=== PATIENT | male | born 1980 | race African-American/Black ===

== ENCOUNTER → 2022-03-29 11:05 | Outpatient (BNVA) | payer BC, SELFPAY | PROVIDERS: PCP Internal Medicine; Referring Provider Internal Medicine; Visit Provider Surgery | DX: D17.20 Benign lipomatous neoplasm of skin and subcutaneous tissue of unspecified limb (principal) ==

== ENCOUNTER 2023-02-13 10:46 | Outpatient (REF) | payer BC, SELFPAY ==
[2023-02-13 14:25] LABS: MANUAL DIFF FLAG NO
[2023-02-13 14:26] LABS: Basophils Percent Auto 0.3 % (0-2); Eosinophils Absolute Auto 0.1 X10*3/uL (0.0-0.4); Eosinophils Percent Auto 1.7 % (0-4); Hematocrit 43.5 % (42.0-52.0); Hemoglobin 14.5 g/dl (14.0-18.0); Imm Gran Abs Auto 0.02 X10*3/uL (0.00-0.03); Imm Gran Pct Auto 0.3 % (0.0-0.4); Lymphocytes Absolute Auto 2.2 X10*3/uL (1.2-4.9); Lymphocytes Percent Auto 37.4 % (20-40); Mean Corpuscular HGB Conc 33.3 g/dl (31.0-36.0); Mean Corpuscular Hemoglobin 29.4 pg (27.0-33.0); Mean Corpuscular Volume 88.1 fL (80.0-98.0); Mean Platelet Volume 10.5 fL (9.4-12.4); Monocytes Absolute Auto 0.4 X10*3/uL (0.1-1.2); Monocytes Percent Auto 6.6 % (2-11); Neutrophils Absolute Auto 3.2 x10*3/uL (2.0-8.3); Neutrophils Percent Auto 53.7 % (45-73); Platelet Count 210 X10*3/uL (160-400); Red Blood Count 4.94 X10*6/uL (4.60-5.80); Red Cell Distribution Width 13.1 % (11.0-16.0); White Blood Count 5.9 X10*3/uL (4.8-10.8)
[2023-02-13 14:53] LABS: Alanine Aminotransferase 29 U/L (0-40); Albumin Level 4.4 g/dL (3.5-5.0); Alkaline Phosphatase 67 U/L (39-117); Anion Gap 14 (12-20); Aspartate Amino Transferase 28 U/L (5-37); Blood Urea Nitrogen 12 mg/dL (9-16); Calcium 9.6 mg/dL (8.4-10.2); Carbon Dioxide 25 mmol/L (22-29); Chloride 105 mmol/L (96-108); Cholesterol 166 mg/dL; Estimated Glomerular Filt Rate > 60; Glucose Fasting 124 mg/dL (60-99); HDL Cholesterol 46 mg/dL; LDL Cholesterol Calculated 110 mg/dl; Potassium 4.5 mmol/L (3.3-5.1); Sodium 139 mmol/L (135-145); Triglycerides 52 mg/dL
[2023-02-13 15:09] LABS: Thyroid Stimulating Hormone 0.95 uIU/mL (0.32-4.0); Vitamin D 25-OH Total 37.2 ng/mL (>30)
== END 2023-02-13 10:47 | disposition home or self-care (01) ==
LOC: HO.HMGCLDS 10:46
PROVIDERS: PCP Internal Medicine; Visit Provider Internal Medicine
DX: Z00.00 Encounter for general adult medical examination without abnormal findings (principal); R73.01 Impaired fasting glucose; E80.6 Other disorders of bilirubin metabolism
CPT/HCPCS: 36415; 80053; 80061; 82306; 84443; 85025

== ENCOUNTER → 2025-04-28 10:27 | Outpatient (BNVA) | payer OTHER, SELFPAY | PROVIDERS: PCP Internal Medicine; Visit Provider Physician Assistant Medical ==

== ENCOUNTER 2025-05-09 09:40 | Outpatient (REF) | payer OTHER, SELFPAY ==
[2025-05-09 13:24] LABS: MANUAL DIFF FLAG NO
[2025-05-09 13:31] LABS: Basophils Percent Auto 0.6 % (0-2); Eosinophils Absolute Auto 0.1 X10*3/uL (0.0-0.4); Eosinophils Percent Auto 2.4 % (0-4); Hematocrit 41.9 % (42.0-52.0); Imm Gran Abs Auto 0.01 X10*3/uL (0.00-0.03); Imm Gran Pct Auto 0.2 % (0.0-0.4); Lymphocytes Absolute Auto 2.3 X10*3/uL (1.2-4.9); Lymphocytes Percent Auto 48.6 % (20-40); Mean Corpuscular HGB Conc 33.4 g/dl (31.0-36.0); Mean Corpuscular Hemoglobin 29.8 pg (27.0-33.0); Mean Corpuscular Volume 89.1 fL (80.0-98.0); Mean Platelet Volume 10.9 fL (9.4-12.4); Monocytes Absolute Auto 0.3 X10*3/uL (0.1-1.2); Monocytes Percent Auto 5.6 % (2-11); Neutrophils Percent Auto 42.6 % (45-73); Platelet Count 186 X10*3/uL (160-400); Red Cell Distribution Width 13.1 % (11.0-16.0); White Blood Count 4.7 X10*3/uL (4.8-10.8)
[2025-05-09 13:42] LABS: Estimated Average Glucose 126 mg/dL; Hemoglobin A1C 151.0834 umol/L; Total Hemoglobin (HGBA1C) 3638.7942 umol/L
[2025-05-09 13:54] LABS: Alanine Aminotransferase 32 U/L (0-40); Albumin Level 4.3 g/dL (3.5-5.0); Alkaline Phosphatase 52 U/L (39-117); Anion Gap 11 (12-20); Aspartate Amino Transferase 33 U/L (5-37); Bilirubin Direct 0.4 mg/dL (0.0-0.5); Bilirubin Total 1.1 mg/dL (0.0-1.0); Blood Urea Nitrogen 17 mg/dL (9-16); C Reactive Protein < 0.10 mg/dL (< or = 0.50); Calcium 9.1 mg/dL (8.4-10.2); Carbon Dioxide 25 mmol/L (22-29); Chloride 108 mmol/L (96-108); Cholesterol 157 mg/dL (<200); Estimated Glomerular Filt Rate > 60; Glucose Fasting 104 mg/dL (60-99); HDL Cholesterol 46 mg/dL (>40); LDL Cholesterol Calculated 100 mg/dL (<100); Magnesium 1.7 mg/dL (1.6-2.6); Potassium 4.3 mmol/L (3.3-5.1); Sodium 140 mmol/L (135-145); Total Protein 6.9 g/dL (6.5-8.0); Triglycerides 56 mg/dL (<150)
[2025-05-09 14:01] LABS: PSA,Total (Free>4and<10) 0.98 ng/mL (0.00-4.00)
[2025-05-09 14:13] LABS: Folate 6.5 ng/mL (> or = 4.0); Vitamin B12 346 pg/mL (200-900)
[2025-05-09 14:24] LABS: Vitamin D 25-OH Total 51.2 ng/mL (>30)
== END 2025-05-09 09:41 | disposition home or self-care (01) ==
LOC: HO.HMGCLDS 09:40
PROVIDERS: PCP Internal Medicine; Visit Provider Physician Assistant Medical
DX: Z00.00 Encounter for general adult medical examination without abnormal findings (principal); Z12.5 Encounter for screening for malignant neoplasm of prostate; Z13.1 Encounter for screening for diabetes mellitus; Z13.6 Encounter for screening for cardiovascular disorders
CPT/HCPCS: 36415; 80053; 80061; 80076; 82248; 82306; 82607; 82746; 83036; 83735; 84153; 84443; 85025; 86140

== ENCOUNTER 2025-05-18 10:31 | Outpatient (AMB) | payer OTHER, SELFPAY ==
--- NOTE | 2025-05-18 10:32 | MHC.PC.OV ---
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: No Accompanied by: Self / Same As Patient Allergies No Known Allergies Allergy (Verified 05/18/25 11:21) Medication List - Last Reconciled 05/18/25 by Eva Zelaya PA-C No Known Home Meds Tobacco use date assessed: 05/18/25 Dental Screening Dental Screen Date: 05/18/25 Did you have a dental visit in the last 12 months?: Yes Did you have a dental problem in the last 6 months where you did not have access to dental care?: No Was dental information given to patient?: Patient has dentist HPI physical HPI Details The patient is a 45-year-old male presenting for a physical examination and management of chronic conditions. The patient reports experiencing lower back pain, which began last fall or spring, around May. The pain is primarily localized to the lower back but occasionally radiates down the legs during heavy lifting activities. The patient attributes the onset of pain to exercises involving heavy lifting and muscle building, indicating a need to improve form to prevent injury. The patient has not undergone imaging for the back pain and was referred to physical therapy, which he has not yet pursued. He manages the pain with Advil and does not report any significant functional limitations or neurological symptoms such as incontinence or unintentional weight loss. The patient has a history of prediabetes, with a fasting glucose level of 104 mg/dL and an A1c of 6.0%. He has been advised to reduce intake of high-sugar foods and beverages, such as soda and pasta, to manage his blood sugar levels. The patient has recently reduced alcohol consumption and primarily drinks water, coffee, and unsweetened tea. The patient was noted to have a low white blood cell count, which will be rechecked in the coming months. He was also slightly dehydrated during the last blood test, attributed to fasting before the test. Preventative care measures include a recent negative Cologuard test for colon cancer screening and a normal colonoscopy in 2011. Social History - Exercise: Engages in regular physical activity, including visits to the gym three to four times a week. - Nutrition: Primarily consumes water, coffee, and unsweetened tea; has reduced alcohol intake. - Family status: Has children, which influences lifestyle and work decisions. [facility] Medical History Preventative health care Leukopenia Prediabetes Annual physical exam Establishing care with new doctor, encounter for Lower back pain Colon cancer screening (~09/20/24) Asthma No pertinent past medical history Surgical History History of colonoscopy (10/2012) Family History Mother Breast cancer in situ Maternal Grandfather Colon cancer Social History Household Members: Spouse Housing: House Alcohol intake: current Alcohol intake frequency: a few times a week Patient Tobacco Use Status: Never used Tobacco service: No Current occupational status: employed Cognitive needs: No Hearing needs: No Vision needs: No Questionnaire PHQ-9 Over the last 2 weeks, how often have you been bothered by any of the following problems? 1. Little interest or pleasure in doing things: not at all 2. Feeling down, depressed, or hopeless: not at all 3. Trouble falling or staying asleep, or sleeping too much: not at all 4. Feeling tired or having little energy: not at all 5. Poor appetite or overeating: not at all 6. Feeling bad about yourself - or that you are a failure or have let yourself or your family down: not at all 7. Trouble concentrating on things, such as reading the newspaper or watching television: not at all 8. Moving or speaking so slowly that other people could have noticed. Or the opposite - being so fidgety or restless that you have been moving around a lot more than usual: not at all 9. Thoughts that you would be better off or of hurting yourself in some way: not at all Total score: 0 Depression Screening Interpretation: Negative Depression Screening Done: Yes 59748 - PHQ-9 Billing: Yes Source: Developed by Drs. Hua Mancia, Scout Bravoke and colleagues, with an educational vic from [employer]. Thrive Questionnaire Date Thrive assessed: 05/18/25 I am a: Patient What is your living situation today?: I have a steady place to live Within the past 12 months, did the food you bought not last and you didn't have the money to get more?: Never true Within the past 12 months, did you worry whether your food would run out before you got money to buy more?: Never true Do you have trouble getting transportation to medical appointments?: No Do you have trouble paying your heating and electricity bill?: No Do you have trouble taking care of your child, family member or friend?: No Do you have trouble with day-to-day activities such as bathing, preparing meals, shopping, managing finances, etc.?: No Are you currently unemployed and looking for a job?: No Are you interested in more education?: No Please select the resources that you would like help with: None Currently or been in a relationship where the following occur: No concerns reported THRIVE Score: 0 AUDIT C Alcohol Use Questionnaire (AUDIT-C) 1. How often do you have a drink containing alcohol?: Never 3. How often do you have six or more drinks on one occasion?: Never Total Score: 0 Score Reviewed/Action Taken: No RONNA-7 AMB Questionnaire RONNA-7 Date RONNA - 7 assessed: 05/18/25 Feeling nervous, anxious, or on edge: 0 = Not at all Not being able to stop or control worryin = Not at all Worrying too much about different things: 0 = Not at all Trouble relaxin = Not at all Being so restless that it is hard to sit still: 0 = Not at all Becoming easily annoyed or irritable: 0 = Not at all Feeling afraid as if something awful might happen: 0 = Not at all Total RONNA-7 score (0-4 normal; 5-9 mild; 10-14 moderate; 15-21 severe): 0 Source: Developed by Drs. Hua Mancia, Scout Bravo and colleagues, with an educational vic from [employer]. RONNA-7 Assessment Billing RONNA-7 Assessment Tool: RONNA-7 Assessment 61103 Review of Systems Const Details: - Musculoskeletal: Reports lower back pain, occasionally radiating to legs during heavy lifting. - Neurological: Denies incontinence or unintentional weight loss. - Gastrointestinal: Denies bloody stools or recent falls. - General: Denies chest pain, belly pain, or weight loss. Physical exam (Primary Care) Vital Signs: Last Vital Signs Temp 97.3 F 05/18/25 10:33 Pulse 69 05/18/25 10:33 Resp 15 05/18/25 10:33 BP 138/88 05/18/25 10:33 Pulse Ox 99 05/18/25 10:33 Oxygen Delivery Method Room Air 05/18/25 10:33 Care Plan Goal for BP management: <140/90 at Goal BMI result Body Mass Index 30.7 BMI Assessment/Plan discussion: High BMI High, discussed plan: lifestyle, weight reduction, dietary, physical activity and alcohol moderation Tobacco/Smoking Status: Tobacco use Status Tobacco use date assessed 05/18/25 05/18/25 10:37 Patient Tobacco Use Status Never used Tobacco 05/18/25 10:33 PHQ-9: PHQ-9 Score PHQ-9: Total score 0 05/18/25 11:01 Depression Screening Interpretation: Negative Thrive Assessment: Date of Thrive Assessment Date Thrive assessed 05/18/25 05/18/25 10:37 Currently or been in a relationship where the following occur: No concerns reported Const Other: Appearance: Alert. Oriented X3. No acute distress. Head: Normal external exam. Normocephalic. Atraumatic. Eyes: Pupils are equal, round, and reactive to light. Extraocular movements intact. Conjunctiva and sclera normal. Eyelids normal. Ears: External auditory canal normal. Tympanic membranes normal. Throat: Pharynx normal. Uvula midline. Moist mucous membranes. Neck: Normal inspection. Neck supple. Full range of motion. No adenopathy. Thyroid Normal. No meningeal signs. No neck mass noted. Cardiovascular: Normal heart rate and rhythm. Heart sound normal. No murmurs noted. Pulses normal throughout. Respiratory: No respiratory distress. Painless inspiration. Breath sounds normal. No wheezes/rales/rhonchi noted. Chest nontender. No accessory muscle usage noted or decreased air movement noted. Abdomen: Soft and nontender. Bowel sounds normal in all 4 quadrants. No distention noted. No organomegaly noted. No visible injury noted. Back: No costovertebral angle tenderness. Full range of motion noted. Reports lower back pain, specifically related to exercise and heavy lifting. Skin: Skin warm and dry. Normal skin color. Normal skin turgor. No rashes/lesions/lacerations noted. Extremities: No lower extremity edema. Extremities exhibit normal range of motion. Extremities nontender. Neuro: Oriented X 3. No motor deficit. No sensory deficit. Reflexes normal. Results Reviewed Results Reviewed: - Labs: Fasting glucose 104 mg/dL, A1c 6.0%, low white blood cell count, elevated BUN and creatinine due to dehydration - Screening: Negative Cologuard test for colon cancer Coding Level of Care Code New Pt Level 4 (68698) New Pt Prev Care 40-64y(64558) Diagnoses Establishing care with new doctor, encounter for Z76.89 Annual physical exam Z00.00 Lower back pain M54.50 Prediabetes R73.03 Leukopenia D72.819 [facility] health care Z00.00 Additional Codes PHQ-9 - 71720 - PHQ-9 Billing: Yes ([id number]) RONNA-7 Assessment Billing - RONNA-7 Assessment Tool: RONNA-7 Assessment 70865 ([id number]) Assessment & Plan Assessment & Plan (1) Establishing care with new doctor, encounter for: Code(s): Z76.89 - Persons encountering health services in other specified circumstances Category: Medical (2) Annual physical exam: Code(s): Z00.00 - Encounter for general adult medical examination without abnormal findings Category: Medical (3) Lower back pain: Code(s): M54.50 - Low back pain, unspecified Category: Medical Plan: The patient will be referred to physical therapy to address lower back pain, focusing on exercises and stretching to improve form and prevent injury. No imaging is planned at this time, as the patient prefers to manage the condition with physical therapy and [id number] pain relief. (4) Prediabetes: Code(s): R73.03 - Prediabetes Category: Medical Plan: The patient is advised to reduce intake of high-sugar foods and beverages, such as soda and pasta, to manage blood sugar levels. A follow-up A1c test is planned in three months to monitor progress. (5) Leukopenia: Code(s): D72.819 - Decreased white blood cell count, unspecified Category: Medical Plan: The patient's low white blood cell count will be rechecked in the coming months to monitor any changes. (6) Preventative health care: Code(s): Z00.00 - Encounter for general adult medical examination without abnormal findings Category: Medical Plan: The patient recently completed a Cologuard test, which was negative, and had a normal colonoscopy in 2011. Plan Plan Patient was informed and verbally consented to the use of an ambient scribe for clinic note documentation during this visit. 1. Lower Back Pain The patient will be referred to physical therapy to address lower back pain, focusing on exercises and stretching to improve form and prevent injury. No imaging is planned at this time, as the patient prefers to manage the condition with physical therapy and [id number] pain relief. 2. Prediabetes The patient is advised to reduce intake of high-sugar foods and beverages, such as soda and pasta, to manage blood sugar levels. A follow-up A1c test is planned in three months to monitor progress. 3. Low White Blood Cell Count The patient's low white blood cell count will be rechecked in the coming months to monitor any changes. 4. Preventative Care: Colon Cancer Screening With Stool Test The patient recently completed a Cologuard test, which was negative, and had a normal colonoscopy in 2011. During the visit, we discussed the management of lower back pain through physical therapy and the importance of proper form during exercises to prevent further injury. We also reviewed the patient's prediabetes status and emphasized dietary modifications, including reducing sugar intake, to manage blood glucose levels. The patient was informed about the need to recheck the low white blood cell count and the significance of the recent negative Cologuard test for colon cancer screening. Orders: Orders PT Evaluation and Treatment Today M54.50 - Low back pain, unspecified Hemoglobin A1c 3 Months Z00.00 - Encounter for general adult medical examination without abnormal findings Medications: New fluconazole 100 mg PO DAILY 5 tabs 6RF 5 days Patient Instructions: - Follow up with physical therapy for lower back pain management. - Reduce intake of high-sugar foods and beverages to manage blood sugar levels. - Schedule a follow-up A1c test in three months. - Monitor for any changes in symptoms and report if necessary.
[2025-05-18 10:33] VITALS: BP 138/88; PULSE 69; RESP 15; TEMP 36.3; O2SAT 99; BMI 30.7
== END 2025-05-18 11:37 | disposition home or self-care (01) ==
LOC: HO.HMCSH 10:31
PROVIDERS: PCP Internal Medicine; Visit Provider Physician Assistant Medical
DX: Z00.00 Encounter for general adult medical examination without abnormal findings (principal); M54.50 Low back pain, unspecified; R73.03 Prediabetes; D72.819 Decreased white blood cell count, unspecified; Z76.89 Persons encountering health services in other specified circumstances

== ENCOUNTER → 2025-05-18 10:31 | Outpatient (BNVA) | payer OTHER, SELFPAY | PROVIDERS: PCP Internal Medicine; Visit Provider Physician Assistant Medical | DX: Z00.00 Encounter for general adult medical examination without abnormal findings (principal); Z76.89 Persons encountering health services in other specified circumstances; M54.50 Low back pain, unspecified; R73.03 Prediabetes; D72.819 Decreased white blood cell count, unspecified; Z13.31 Encounter for screening for depression; Z13.30 Encounter for screening examination for mental health and behavioral disorders, unspecified | CPT/HCPCS: 96127 ==